=== PATIENT | female | born 1980 | race Caucasian/White ===

== ENCOUNTER 2018-10-20 13:48 | Inpatient (IN) ==
[2018-10-20] MEDS ORDERED: Methylergonovine 0.2 MG/ML AMPUL IM ONE ×2 (14:25→14:37)
[2018-10-20] MEDS ORDERED: 0.9 % Sodium Chloride 1,000 ML IVC ONE ×3 (14:27→14:35)
--- NOTE | 2018-10-20 14:37 | Anesthesia Evaluation PreOp ---
Date of Encounter: 10/20/18 Time of Encounter: 14:35 - Past History Planned Operation: EMERGENCY D&C Other Medical History: Bleeding (INCOMPLETE , HEMMORHAGIC SHOCK, ACTIVE RESUSCITATION ONGOING) - Meds/Allergy Pre-op Review Allergies Reviewed: Yes (NKDA) Anesthesia Exam REVIEWED - HR 110, SBP 95 Weight: ~70 KG NPO (# of Hours): >0700 - HEENT Mallampati: I Teeth: Missing Denture Type: Upper: Complete - Cardiac Rhythm: Regular - Pulmonary Breath Sounds: bilateral Clear Anesthesia Assess/Plan ASA Score: 4, E Anesthetic Plan: General (EMERGENTLY TO SURGERY FROM ED) Monitoring Plan: Standard Monitors Recovery Plan: PACU
[2018-10-20] MEDS ORDERED: Ketamine *HR* 500 MG/10 ML MDV ONE (14:42)
[2018-10-20] MEDS ORDERED: Tranexamic Acid 1,000 MG/10 ML VIAL ONE (14:42)
[2018-10-20] MEDS ORDERED: *HR* Vasopressin 20 UNIT/ML VIAL ONE (14:43)
[2018-10-20] MEDS ORDERED: Lidocaine -MPF 2% 2 ML VIAL ONE (14:44)
[2018-10-20] MEDS ORDERED: *HR* Propofol 200 MG/20 ML VIAL IVP ONE (14:44)
[2018-10-20] MEDS ORDERED: *HR* Succinylcholine 200 MG/10 ML VIAL IVP ONE (14:44)
--- NOTE | 2018-10-20 14:44 | OB/GYN History & Physical ---
Date of Encounter: 10/20/18 Time of Encounter: 14:42 Assessment and Plan (1) Missed with demise before 20 completed weeks of gestation Current visit: Yes Status: Acute She will be taken to operating room for suction dilatation and curettage (2) Vaginal bleeding affecting early Current visit: Yes Status: Acute (3) Acute blood loss anemia Current visit: Yes Status: Acute Patient to receive 2 units of blood getting her third and fourth unit at this time we will reassess after surgery (4) Grand multiparity Current visit: Yes Status: Acute History of Present Illness HPI: Ms. Quintero is a 38 year old female 10 para 9 at approximately 8 weeks who presented in emergency room complaining of vaginal bleeding for the past couple days. The patient arrived to the emergency room patient started hemorrhaging and had a syncopal episode. Patient was immediately given 2 large- bore IVs and trauma blood was initiated. Patient became orthostatic at this point. Was at this point we will called to come and assess the patient patient this point was normal along in this syncopal episode blood disorder being rapidly infused and she was cognizant. Patient states that she has not seen anyone so for this care they usually sees the textiles sales representative in the community. She has never had any care at a hospital never delivered at Hospital and they have children delivered at home. Patient is was noted to be actively bleeding upon evaluation in 0.2 mg of Methergine was given IM to try and help slow down the bleeding. She was counseled she needed to the operating room for an emergent dilatation and curettage. Past Med Surg Social Fam HX - Past Medical History Source: patient Medical history: no medical history Psychiatric history: no psych history - Past Surgical History Surgical History: no surgical history - Social History Smoking Status: Never smoker Smokeless Tobacco Status: No Alcohol use: none Drug use: none Occupational status: unemployed Current living situation: Home - Independent Activity Level: Independent ambulation Recent Out of Country Travel Within the Last 8 Weeks: No Exposure or Possible Exposure to Illness During Travel: No - Additional Family History Additional family history: Family history not contributory at this time Obstetrical History - Pregnancies : 10 Para: 9 Livin Review of System OB All systems PM: reviewed and no additional remarkable complaints except as stated - Genitourinary Genitourinary: menorrhagia (Heavy passing large clots while in the emergency room started bleeding 2-3 days ago.) Exam - Constitutional Constitutional: well developed, average body habitus, severe distress, dusky - HEENT HEENT: Mucus Membranes Dry - Lungs Respiratory exam: CTAB - Cardiovascular Cardiovascular exam: tachycardia - Abdomen Abdomen: Present: gravid - Comments Comments: Patient evaluated active vaginal bleeding noted large amount of clots on the perineum on the bed and in the vagina. Results All other labs normal.
[2018-10-20] MEDS ORDERED: *HR* Midazolam HCl 2 MG/2 ML VIAL ONE (14:45)
[2018-10-20] MEDS ORDERED: *HR* FentaNYL (PF) 100 MCG/2 ML VIAL ONE (14:45)
[2018-10-20] MEDS ORDERED: Calcium Gluconate 1,000 MG/10 ML VIAL ONE (14:50)
[2018-10-20 15:02] LABS: INR 1.2; Prothrombin Time 14.1 Seconds (9.4-12.1)
[2018-10-20 15:05] LABS: Activated Partial Thrombo Time 22.8 Seconds (26.0-36.0)
--- NOTE | 2018-10-20 15:08 | Emergency Department Note ---
Disposition Clinical Impression: Spontaneous complicated by shock, Acute blood loss anemia, Vaginal bleeding affecting early Disposition: Admitted As Inpatient Condition: Fair Time of Disposition: 14:20 HPI - General Chief complaint: ED Vaginal Bleeding Stated complaint: Vag Bleed Time Seen by Provider: 10/20/18 13:51 Source: patient Mode of arrival: ambulatory Limitations: no limitations Nursing Notes Reviewed: Yes Vital Signs Reviewed: Yes - History of Present Illness HPI Narrative: Concern about status. 38-year-old female brought to the emergency department by EMS for evaluation of vaginal bleeding. Patient states she is G 10 P9 at 2-1/2 months with due date of May 12 by last menstrual period. Patient has not received care prior to today. No history of ectopic in the past. She denies use of fertility medications. No history of miscarriage in the past. Patient reports she is starting to have vaginal bleeding yesterday, today she developed vaginal hemorrhage which was unable to be contained with pads. She denies significant abdominal pain, back pain. She syncopized at home prior to arrival. She does not know her blood type. Denies abdominal pain, trauma, recent hemorrhage prior to yesterday. Denies recent fever, chills, change in diet. No new medications. Denies chest pain or shortness breath emergency Department however she is very pale and appears fatigued. - Related Data Allergies Allergy/AdvReac Type Severity Reaction Status Date / Time No Known Allergies Allergy Verified 10/20/18 14:56 All systems ED: reviewed and negative except as stated. Review of Systems: As Per HPI PMH - Past Medical History MANAGER FIBER history: Denies: Spontaneous , Therapeutic , Cervical Cancer, Ectopic - Social History Smoking Status: Never smoker Alcohol use: Reports: none Drug use: Reports: none Physical Exam General: Alert, fatigued Skin: Pale and dry intact Head: Normocephalic and atraumatic Neck: Supple, trachea midline and no tenderness Cardiovascular: Tachycardia, no murmur Respiratory: CTAB, no wheezing, cough, or respiratory distress Musculoskeletal: Normal strength, no tenderness, swelling or deformity GI: Soft, mild tenderness to palpation of the suprapubic region. Nondistended. : Exam performed with female present in room. Patient having brisk vaginal hemorrhage with bright red blood with multiple clots within the vaginal vault. Unable to visualize the cervix secondary to brisk bleeding despite aggressive suctioning. No products of conception noted on exam. Neuro: A&O to person, place, time and situation. No focal deficits noted on exam Psychiatric: cooperative and appropriate mood and affect. Course Vital Signs Temperature 97.6 F 10/20/18 13:50 Pulse Rate 101 10/20/18 13:50 Respiratory Rate 18 10/20/18 13:50 Blood Pressure 132/118 10/20/18 13:50 O2 Sat by Pulse Oximetry 99 10/20/18 13:50 Temperature 97.6 F 10/20/18 13:50 Pulse Rate 100 10/20/18 14:44 Respiratory Rate 18 10/20/18 14:44 Blood Pressure 101/56 10/20/18 14:44 O2 Sat by Pulse Oximetry 98 10/20/18 14:44 Oxygen Delivery Oxygen Delivery Room Air,Nasal Cannula OB/Uterine Contractions - MDM Narrative Medical decision making narrative: 1400 : Trauma blood was ordered upon the initial evaluation. MANAGER FIBER was contacted during the initial evaluation. I spoke with the MANAGER FIBER nurse practitioner, Apple Castro, who informed the meat and poultry inspector who stated they would be in the emergency department as soon as possible. After pelvic exam was performed fundal massage and pressure was applied. Patient was placed in Trendelenburg position after she had a syncopal episode in the room. Her BP dropped into the mid 40s systolic, she was immediately given 2 L of fluid through pressure bag as well as 2 units of O- blood. Patient BP and heart rate improved with fluids. She was able to wake up and answer questions to voice. No history of anticoagulopathy in family history per . 1420 MANAGER FIBER evaluated the patient in the emergency department and will take to the OR for emergency D&C. Dr. Maloney requested 0.2 mg of Methergine BP stabilized prior to departure from the emergency department. I was informed that the blood bank ran out of O- blood. We spoke with Dr. Maloney regarding this issue who recommended O+ blood if needed until we are able to obtain a type and screen or Rh status. Patient does not have ABO Rh type in our medicals electronic records. Dr. Maloney recommended that he would give Rhogam if needed upon return of the type and screen. Patient was taken immediately down to the OR for emergent D&C. - Medical Records Medical records reviewed: Yes I reviewed the patient's medical records. - Lab Data Lab Results 10/20/18 10/20/18 Range/Units 14:15 14:36 PT 14.1 H (9.4-12.1) Seconds INR 1.2 APTT 22.8 L (26.0-36.0) Seconds Fibrinogen 216 (169-393) mg/dL D-Dimer 1129 H (0-500) ng/mLFEU Blood Type A POSITIVE Crossmatch See Detail Critical Care Time Critical Care Time: Yes Total Critical Care Time: 36 Attestation: The high probability of a clinically significant, sudden or life threatening deterioration of the cardiovascular system(s) required my full and direct attention, intervention and personal management. The aggregate critical care time was 36 minutes. This time is in addition to time spent performing reported procedures but includes the following: x Data Review and interpretation x Patient assessment and monitoring of vital signs x Documentation x Medication orders and management Attestation Statement - Attestation Attestation: I, Leo Romero, examined this patient and my medical decision-making was reviewed with the POLY AREA SUPERVISOR/PA/Advanced Practice Nurse/Resident Physician. I agree with the documented findings, disposition and treatment plan as described except to the extent set forth below. The resident and I both saw this patient however I wrote this note.
[2018-10-20 15:26] LABS: Basophils % 0.2 %; Hematocrit 31.3 % (35.3-44.9); Hemoglobin 10.1 g/dL (11.5-15.4); Immature Granulocytes % 0.6 % (0-4); Lymphocytes # 1.2 K/mcL (0.6-4.6); Lymphocytes % 12.4 %; Mean Corpuscular HGB Conc 32.3 g/dL (31.6-35.5); Mean Corpuscular Hemoglobin 29.3 pg (28.0-33.3); Mean Corpuscular Volume 90.7 fL (83.0-100.0); Mean Platelet Volume 9.8 fL (9.4-12.4); Monocytes # 0.3 K/mcL (0.0-1.3); Monocytes % 2.7 %; Neutrophils # 8.3 K/mcL (1.6-8.9); Platelet Count 102 K/mcL (140-400); Red Blood Count 3.45 M/mcL (3.82-4.97); Red Cell Distribution Width 14.5 % (11.5-14.5); Segmented Neutrophils % 84.1 %; White Blood Count 9.9 K/mcL (4.3-11.1)
--- NOTE | 2018-10-20 15:31 | Operative Note ---
Date of procedure: 10/20/18 Pre-op diagnosis: missed Post-op diagnosis: other (incomplete ) Procedure: Suction dilatation and curettage Anesthesia: ROZINA Surgeon: Joss Maloney Was there an licensed physical therapist assistant present: No Estimated blood loss (cc): 100 Specimen: Retained products of conception Condition: critical Disposition: ICU Procedure in Detail: Patient is a 38-year-old 10 para 9 at approximately 8 weeks per patient who presented to the emergency room with complaint of vaginal bleeding for the past couple days while in the emergency room patient started to hemorrhage profusely and had a syncopal episode. Patient became orthostatic immediately stabilized her with IV fluids and trauma blood. Patient with active bleeding large amount of blood on the perineum and bed at the time of the evaluation. Patient was assessed patient was symptomatic with active vaginal bleeding noted she was given 0.2 mg of Methergine IM and immediately taken to the operating room. Procedure: Patient was taken the operating room where general anesthesia was found be adequate. She was not dorsal lithotomy position prepped and draped in usual fashion. Timeout was obtained. Weighted speculum was placed in the vagina and the cervix was grasped with an Allis clamp cervix was already dilated with a large clot at the cervical os we initially attempted to do the D&C with a #8 curved suction curette but we are running into tissue that was too thick to be withdrawn from the cavity we converted over to a #10 and was able to remove a large piece of placental tissue. We then proceeded to remove clots and placental and products through the curet and hemostasis was better controlled at this time. We converted over to the 8 curved curet again and proceeded to curettage the cavity at this point we are getting nothing but a little bit of blood and we had good uterine cry. A #3 sharp curet was inserted D&C was performed there was no remaining tissue noted. 0.2 mg Methergine was given intraoperatively 1 she was observed no active bleeding was noted and the pr ocedure was terminated all instruments were removed from the vagina she received her third and fourth units of blood intraoperatively additional units have been ordered at this time. Anesthesia also ordered platelets and FFP. Initial lab work was unable to be run from the emergency room.
--- NOTE | 2018-10-20 16:05 | Anesthesia Evaluation Post Op ---
Date of Encounter: 10/20/18 - Discharge PostOp Status: Transfer Patient to floor (Patient's vital signs have been reviewed. Patient is stable postoperatively and has adequately recovered from anesthesia. Patient is determined to have stable airway patency and respiratory function including respiratory rate and oxygen saturation. Patient has a stable heart rate, blood pressure and adequate hydration. Patients mental status is acceptable. Patients temperature is appropriate. Pain and nausea are adequately controlled)
--- NOTE | 2018-10-20 16:15 | Pulmonology Consult Note ---
Date of Encounter: 10/20/18 Time of Encounter: 16:15 Past Med Surg Social Fam HX - Past Medical History Medical history: no medical history Psychiatric history: no psych history - Past Surgical History Surgical History: no surgical history - Social History Smoking Status: Never smoker Smokeless Tobacco Status: No Alcohol use: none Drug use: none Medications and Allergies Allergy/AdvReac Type Severity Reaction Status Date / Time No Known Allergies Allergy Verified 10/20/18 14:56 All Systems: The remainder of the systems were reviewed and are negative Physical Examination Vital Signs: Vital Signs, Last 4 Hours Temp Pulse Resp BP Pulse Ox 10/20/18 16:05 98 F 82 14 113/82 100 10/20/18 15:55 84 18 105/73 100 10/20/18 15:45 77 16 96/61 100 10/20/18 15:35 97 F L 78 16 90/59 99 10/20/18 14:44 100 18 101/56 98 10/20/18 14:27 105 18 90/70 96 10/20/18 14:25 96 18 93/58 100 10/20/18 13:50 97.6 F 101 18 132/118 99 Results - Laboratory Findings CBC and BMP: 10/20/18 15:17 PT/INR, D-dimer PT 14.1 Seconds (9.4-12.1) H 10/20/18 14:15 D-Dimer 1129 ng/mLFEU (0-500) H 10/20/18 14:15 Abnormal lab findings: Abnormal lab results RBC 3.45 M/mcL (3.82-4.97) L 10/20/18 15:17 Hgb 10.1 g/dL (11.5-15.4) L 10/20/18 15:17 Hct 31.3 % (35.3-44.9) L 10/20/18 15:17 Plt Count 102 K/mcL (140-400) L 10/20/18 15:17 PT 14.1 Seconds (9.4-12.1) H 10/20/18 14:15 APTT 22.8 Seconds (26.0-36.0) L 10/20/18 14:15 D-Dimer 1129 ng/mLFEU (0-500) H 10/20/18 14:15 Crossmatch See Detail 10/20/18 14:36 - Clinical Findings Intake & Output: Intake & Output 10/20/18 10/20/18 10/20/18 07:59 15:59 23:59 Intake Total 4100 / 4100 Balance 4100 / 4100 Weight 62.188 kg Consult Discharge Plan - Plan Referrals: NONE,PCP [Primary Care Provider] -
[2018-10-20] MEDS ORDERED: Ibuprofen 800 MG TABLET PO PRN ×2 (16:24→20:18)
[2018-10-20] MEDS ORDERED: Acetaminophen 325 MG TABLET PO PRN ×2 (16:24→20:18)
[2018-10-20] MEDS ORDERED: Ringers Solution, Lactated 1,000 ML IVC SCH ×2 (16:24→20:18)
[2018-10-20] MEDS ORDERED: Naloxone 0.4 MG/ML INJ IVP PRN (16:30)
[2018-10-20] MEDS ORDERED: Ondansetron 4 MG/2 ML VIAL IVP PRN ×2 (16:39→20:18)
--- NOTE | 2018-10-20 16:49 | Internal Medicine Consult Note ---
Date of Encounter: 10/20/18 Time of Encounter: 16:40 - Assessment and Plan (1) Spontaneous complicated by shock Current Visit: Yes Status: Acute Assessment and plan: Pt presented to ED with spontaneous resulting in hemorrhagic shock. She was taken urgently to OR for D&C. She has received 4 units of PRBCs and is now receiving a unit of FFP and platelets Will recheck H/H and chemistries. Serial H/H ordered. Transfusion if less than 8 or other signs of continued blood loss. Pt has multiple large bore IV access. (2) Hemorrhagic shock Current Visit: Yes Status: Acute Assessment and plan: Management as per above - monitoring H/H, IV fluids. FFP and platelets given now for prior massive transfusion. (3) Acute blood loss anemia Current Visit: Yes Status: Acute Assessment and plan: Pt with hemoglobin 10.1 on presentation. Has received 4 units PRBCs. Serial H/H ordered. (4) Vagal bradycardia Current Visit: Yes Status: Acute Assessment and plan: Pt experienced vagal episode with bradycardia while attempting to vomit. Has returned to normal sinus rhythm and remained hemodynamically stable throughout. No meds given. Zofran ordered for nausea. - Time Spent With Patient Total time spent is greater than 50% in coordination of care (as documented) at patient's floor/unit and/or counseling patient: Internal Medicine - CN: HPI - Data of Consult Patient: new to practice Consult date: 10/20/18 Requesting Physician: [place] Maloney - Consult Narrative Reason for consult: Hemorrhagic shock History of present illness: Ms. Quintero is a 38 year old female presented to ED with vaginal bleeding at 8 weeks . In ED she began to hemorrhage and had syncopal episode and trauma blood was given. She was taken urgently to the OR for D&C and transferred to ICU post operatively for further management. She has received 4 units PRBCs prior to arrival to ICU. At the time of my evaluation she is somnolent post op. She has evidence of bleeding on vaginal pad. She has multiple large bore IVs and is receiving IV fluids. We have started transfusion of a unit of FFP. Shortly after arrival to the ICU she became nauseous and began to retch. She had vagal episode with heart rate dropping to 20s. It quickly recovered to the 90s with BP 123/70. At this time she appears to be resting. Past Med Surg Social Fam HX - Past Medical History Medical history: no medical history Psychiatric history: no psych history - Past Surgical History Surgical History: no surgical history - Social History Smoking Status: Never smoker Smokeless Tobacco Status: No Alcohol use: none Drug use: none - Additional Family History Additional family history: Unobtainable ROS unobtainable: due to mental status Internal Medicine - CN: Meds Allergy/AdvReac Type Severity Reaction Status Date / Time No Known Allergies Allergy Verified 10/20/18 14:56 Hospitalist - CN: Exam - Constitutional Vitals: Temp Pulse Resp BP Pulse Ox 98 F 82 14 113/82 100 10/20/18 16:05 10/20/18 16:05 10/20/18 16:05 10/20/18 16:05 10/20/18 16:05 General appearance IM: Present: A&O X 0 (Somnolent post op) Exam: See below - Head Head exam: Present: atraumatic, normocephalic - Eye Eye exam: Present: conjuntiva pink. Absent: conjunctival injection, scleral icterus - ENT ENT exam: Present: mucous membranes dry - Expanded ENT Exam Mouth exam: Present: dry mucosa - Neck Neck exam general surgery: Present: normal inspection. Absent: lymphadenopathy, thyromegaly - Respiratory Respiratory exam: Present: CTAB. Absent: rales, rhonchi, wheezes - Cardiovascular Cardiovascular exam IM: Present: RRR. Absent: systolic murmur, tachycardia - GI/Abdominal GI/Abdominal exam IM: Present: diminished bowel sounds, soft - Rectal Rectal exam: Present: deferred - Expanded Exam Female exam: Present: deferred - Extremities Exam Extremities exam IM: Present: normal inspection. Absent: mottling, pedal edema Additional comments: Cool to touch. Pulses palpable - Neurological Exam Neurological exam: Absent: alert Additional comments: Moving all extremities. Unable to assess further due to sedation. - Skin Skin exam IM: Present: dry. Absent: rash Internal Medicine - CN: Reslt - Labs CBC & Chem 7: 10/20/18 15:17 Labs: Short CBC 10/20/18 Range/Units 15:17 WBC 9.9 (4.3-11.1) K/mcL Hgb 10.1 L (11.5-15.4) g/dL Hct 31.3 L (35.3-44.9) % Plt Count 102 L (140-400) K/mcL Neutrophils # 8.3 (1.6-8.9) K/mcL - ABG Interpretation ABG results: PT/INR, D-dimer PT 14.1 Seconds (9.4-12.1) H 10/20/18 14:15 D-Dimer 1129 ng/mLFEU (0-500) H 10/20/18 14:15 Consult Discharge Plan - Plan Referrals: NONE,PCP [Primary Care Provider] -
[2018-10-20] MEDS ORDERED: 0.9 % Sodium Chloride 500 ML ONE (16:51)
--- NOTE | 2018-10-20 17:19 | Anesthesia Evaluation Post Op ---
Date of Encounter: 10/20/18 Time of Encounter: 16:05 - Discharge PostOp Status: Transfer Patient to floor (Patient's vital signs have been reviewed. Patient is stable postoperatively and has adequately recovered from anesthesia. Patient is determined to have stable airway patency and respiratory function including respiratory rate and oxygen saturation. Patient has a stable heart rate, blood pressure and adequate hydration. Patients mental status is acceptable. Patients temperature is appropriate. Pain and nausea are adequately controlled)
[2018-10-20 18:57] LABS: Basophils % 0.1 %; Hematocrit 33.6 % (35.3-44.9); Hemoglobin 10.9 g/dL (11.5-15.4); Immature Granulocytes % 0.3 % (0-4); Lymphocytes # 0.6 K/mcL (0.6-4.6); Lymphocytes % 5.4 %; Mean Corpuscular HGB Conc 32.4 g/dL (31.6-35.5); Mean Corpuscular Hemoglobin 29.8 pg (28.0-33.3); Mean Corpuscular Volume 91.8 fL (83.0-100.0); Mean Platelet Volume 9.8 fL (9.4-12.4); Monocytes # 0.3 K/mcL (0.0-1.3); Monocytes % 2.7 %; Neutrophils # 10.9 K/mcL (1.6-8.9); Platelet Count 136 K/mcL (140-400); Red Blood Count 3.66 M/mcL (3.82-4.97); Red Cell Distribution Width 15.1 % (11.5-14.5); Segmented Neutrophils % 91.5 %; White Blood Count 11.9 K/mcL (4.3-11.1)
[2018-10-20 19:16] LABS: Alanine Aminotransferase 13 Units/L (7-52); Albumin 3.6 g/dL (3.5-5.7); Albumin/Globulin Ratio 1.8 (1.1-2.2); Alkaline Phosphatase 34 Units/L (34-104); Aspartate Amino Transferase 16 Units/L (13-39); BUN/Creatinine Ratio 18 (6-26); Bilirubin,Total 1.2 mg/dL (0.3-1.0); Blood Urea Nitrogen 9 mg/dL (6-20); Carbon Dioxide 19 mEq/L (23-29); Chloride 111 mEq/L (98-107); Glucose 115 mg/dL (70-105); Magnesium 1.6 mg/dL (1.6-2.6); Osmolality,Calculated 286 (280-300); Potassium 3.6 mEq/L (3.5-5.1); Sodium 138 mEq/L (136-145); Total Protein 5.6 g/dL (6.4-8.9); eGFR For African Americans > 60 (> 60); eGFR For Non-African Americans > 60 (> 60)
--- NOTE | 2018-10-21 07:02 | Discharge Summary ---
Date of Encounter: 10/21/18 Time of Encounter: 07:02 - Discharge Diagnosis (1) Missed with demise before 20 completed weeks of gestation Priority: Secondary Status: Acute (2) Vaginal bleeding affecting early Priority: Secondary Status: Acute (3) Acute blood loss anemia Priority: Primary Status: Acute (4) Grand multiparity Priority: Secondary Status: Acute (5) Status post dilatation and curettage Priority: Primary Status: Acute - Discharge Medications Prescriptions: New Methylergonovine [Methergine] 0.2 mg PO Q8H #6 tablet Home Medications: Methylergonovine [Methergine] 0.2 mg PO Q8H #6 tablet 10/21/18 [Rx] Allergies/Adverse Reactions: Allergy/AdvReac Type Severity Reaction Status Date / Time No Known Allergies Allergy Verified 10/20/18 14:56 Data Procedures and tests throughout hospitalization: Laboratory Tests 10/20/18 10/20/18 10/20/18 14:15 14:36 15:17 WBC 9.9 RBC 3.45 L Hgb 10.1 L Hct 31.3 L MCV 90.7 MCH 29.3 MCHC 32.3 RDW 14.5 Plt Count 102 L MPV 9.8 Immature Gran % 0.6 Seg Neutrophils % 84.1 Lymphocytes % 12.4 Monocytes % 2.7 Eosinophils % 0.0 Basophils % 0.2 Neutrophils # 8.3 Lymphocytes # 1.2 Monocytes # 0.3 Eosinophils # 0.0 Basophils # 0.0 PT 14.1 H INR 1.2 APTT 22.8 L Fibrinogen 216 D-Dimer 1129 H Sodium Potassium Chloride Carbon Dioxide BUN Creatinine Est GFR ( Amer) Est GFR (Non-Af Amer) BUN/Creatinine Ratio Glucose POC Glucose Calculated Osmolality Lactic Acid Calcium Magnesium Total Bilirubin AST ALT Alkaline Phosphatase Serum Total Protein Albumin Globulin Albumin/Globulin Ratio Blood Type A POSITIVE Antibody Screen NEGATIVE Crossmatch See Detail 10/20/18 10/20/18 10/20/18 16:23 18:45 18:45 WBC 11.9 H RBC 3.66 L Hgb 10.9 L Hct 33.6 L MCV 91.8 MCH 29.8 MCHC 32.4 RDW 15.1 H Plt Count 136 L MPV 9.8 Immature Gran % 0.3 Seg Neutrophils % 91.5 Lymphocytes % 5.4 Monocytes % 2.7 Eosinophils % 0.0 Basophils % 0.1 Neutrophils # 10.9 H Lymphocytes # 0.6 Monocytes # 0.3 Eosinophils # 0.0 Basophils # 0.0 PT INR APTT Fibrinogen D-Dimer Sodium 138 Potassium 3.6 Chloride 111 H Carbon Dioxide 19 L BUN 9 Creatinine 0.51 L Est GFR ( Amer) > 60 Est GFR (Non-Af Amer) > 60 BUN/Creatinine Ratio 18 Glucose 115 H POC Glucose 112 H Calculated Osmolality 286 Lactic Acid Calcium 8.0 L Magnesium 1.6 Total Bilirubin 1.2 H AST 16 ALT 13 Alkaline Phosphatase 34 Serum Total Protein 5.6 L Albumin 3.6 Globulin 2.0 L Albumin/Globulin Ratio 1.8 Blood Type Antibody Screen Crossmatch 10/20/18 18:45 WBC RBC Hgb Hct MCV MCH MCHC RDW Plt Count MPV Immature Gran % Seg Neutrophils % Lymphocytes % Monocytes % Eosinophils % Basophils % Neutrophils # Lymphocytes # Monocytes # Eosinophils # Basophils # PT INR APTT Fibrinogen D-Dimer Sodium Potassium Chloride Carbon Dioxide BUN Creatinine Est GFR ( Amer) Est GFR (Non-Af Amer) BUN/Creatinine Ratio Glucose POC Glucose Calculated Osmolality Lactic Acid 1.6 Calcium Magnesium Total Bilirubin AST ALT Alkaline Phosphatase Serum Total Protein Albumin Globulin Albumin/Globulin Ratio Blood Type Antibody Screen Crossmatch Labs on day of discharge: Labs from last 24 hours 10/20/18 10/20/18 10/20/18 18:45 18:45 18:45 WBC 11.9 H RBC 3.66 L Hgb 10.9 L Hct 33.6 L MCV 91.8 MCH 29.8 MCHC 32.4 RDW 15.1 H Plt Count 136 L MPV 9.8 Immature Gran % 0.3 Seg Neutrophils % 91.5 Lymphocytes % 5.4 Monocytes % 2.7 Eosinophils % 0.0 Basophils % 0.1 Neutrophils # 10.9 H Lymphocytes # 0.6 Monocytes # 0.3 Eosinophils # 0.0 Basophils # 0.0 PT INR APTT Fibrinogen D-Dimer Sodium 138 Potassium 3.6 Chloride 111 H Carbon Dioxide 19 L BUN 9 Creatinine 0.51 L Est GFR ( Amer) > 60 Est GFR (Non-Af Amer) > 60 BUN/Creatinine Ratio 18 Glucose 115 H POC Glucose Calculated Osmolality 286 Lactic Acid 1.6 Calcium 8.0 L Magnesium 1.6 Total Bilirubin 1.2 H AST 16 ALT 13 Alkaline Phosphatase 34 Serum Total Protein 5.6 L Albumin 3.6 Globulin 2.0 L Albumin/Globulin Ratio 1.8 Blood Type Antibody Screen Crossmatch 10/20/18 10/20/18 10/20/18 16:23 15:17 14:36 WBC 9.9 RBC 3.45 L Hgb 10.1 L Hct 31.3 L MCV 90.7 MCH 29.3 MCHC 32.3 RDW 14.5 Plt Count 102 L MPV 9.8 Immature Gran % 0.6 Seg Neutrophils % 84.1 Lymphocytes % 12.4 Monocytes % 2.7 Eosinophils % 0.0 Basophils % 0.2 Neutrophils # 8.3 Lymphocytes # 1.2 Monocytes # 0.3 Eosinophils # 0.0 Basophils # 0.0 PT INR APTT Fibrinogen D-Dimer Sodium Potassium Chloride Carbon Dioxide BUN Creatinine Est GFR ( Amer) Est GFR (Non-Af Amer) BUN/Creatinine Ratio Glucose POC Glucose 112 H Calculated Osmolality Lactic Acid Calcium Magnesium Total Bilirubin AST ALT Alkaline Phosphatase Serum Total Protein Albumin Globulin Albumin/Globulin Ratio Blood Type A POSITIVE Antibody Screen NEGATIVE Crossmatch See Detail 10/20/18 14:15 WBC RBC Hgb Hct MCV MCH MCHC RDW Plt Count MPV Immature Gran % Seg Neutrophils % Lymphocytes % Monocytes % Eosinophils % Basophils % Neutrophils # Lymphocytes # Monocytes # Eosinophils # Basophils # PT 14.1 H INR 1.2 APTT 22.8 L Fibrinogen 216 D-Dimer 1129 H Sodium Potassium Chloride Carbon Dioxide BUN Creatinine Est GFR ( Amer) Est GFR (Non-Af Amer) BUN/Creatinine Ratio Glucose POC Glucose Calculated Osmolality Lactic Acid Calcium Magnesium Total Bilirubin AST ALT Alkaline Phosphatase Serum Total Protein Albumin Globulin Albumin/Globulin Ratio Blood Type Antibody Screen Crossmatch Date of admission: 10/20/18 15:14 Primary care physician: PCP NONE Consults: 10/20/18 14:26 Consult to [employer] [CONS] Stat Consulting Provider: [employer] [place] Reason for Consult: vaginal hemorrhage Time Notified: 14:15 Call Completed: Yes 10/20/18 16:24 Consult to Hospitalist [CONS] Routine Consulting Provider: Hospitalist [facility] Reason for Consult: hx miscarrage with significant blood loss anemia, admit to ICU Time Notified: 16:00 Call Completed: Yes Discharging clinician: Joss Maloney Anticipated date of discharge: 10/21/18 - Patient Status Disposition: Home, Self-Care Condition: Good Functional capacity at discharge: independent ambulation Overall status at discharge: patient is progressing back to baseline - Discharge Instructions Follow Up With: NONE,PCP [Primary Care Provider] - Joss Maloney DO [Partnered Physician] - Mita Banuelos CNM [Non-Partnered Physician] - - Diet and Activity Activity: increase activity as tolerated Diet: advance to your usual diet Hospital Course [employer]ICAL [employer] DIRECT[employer] Reason for admission: other (Missed , active vaginal bleeding, blood loss anemia) Post op complications: None Discharge diagnosis: other (Same with incomplete and status post blood transfusion 4) Procedures: Suction dilatation and curettage Hospital course: 38-year-old 10 para 9 who presented to the emergency room complaining of heavy vaginal bleeding. Patient had started bleeding the day before but not that heavy but around noon Started passing large clots and became symptomatic. Patient on arrival to the emergency room was symptomatic had a syncopal episode and was orthostatic. Immediately contacted as and at that time had started 2 large bore IVs , and trauma blood was started. Patient was immediately taken to the operating room where she received 2 more units of blood and we performed a suction dilatation and curettage. Patient thought she was approximately 8 weeks based on size uterus and the amount of product that we removed I would suspect she was closer to 12-14 weeks. There was no fetus she might a past that at home when the emergency room, emergency room did examine the clots did not find anything. Patient was initially sent to ICU for stabilization she did receive FFP and platelets follow-up the and once stable we decided to transfer back down to our unit. Patient was observed blood work was repeated all stable and she was having minimal bleeding patient was tolerating diet and ambulating without any difficulty and was ready to go home. She will be discharged home with Methergine 0.2 mg every 8 hours as needed for bleeding she will take [id number] iron and [id number] ibuprofen. We will make arrangements for her to follow up with someone in approximately 2 weeks. Patient's condition at the time of discharge was stable. Time Attestation: Total time spent providing and/or coordinating discharge services: Exam - Constitutional Vitals: Temp Pulse Resp BP Pulse Ox 99.3 F 82 16 107/66 98 10/21/18 04:45 10/21/18 04:45 10/21/18 04:45 10/21/18 04:45 10/21/18 04:45 General appearance IM: A&O X 3, no acute distress - Respiratory Respiratory exam: Present: CTAB - Cardiovascular Cardiovascular exam IM: Present: RRR - GI/Abdominal GI/Abdominal exam IM: normal bowel sounds - External exam: normal external exam Uterine Tone: Firm - Extremities Exam Extremities exam IM: Present: full ROM
[2018-10-21 07:15] LABS: Basophils % 0.3 %; Eosinophils % 0.5 %; Hematocrit 26.1 % (35.3-44.9); Immature Granulocytes % 0.1 % (0-4); Lymphocytes # 1.7 K/mcL (0.6-4.6); Lymphocytes % 22.4 %; Mean Corpuscular HGB Conc 33.7 g/dL (31.6-35.5); Mean Corpuscular Hemoglobin 28.9 pg (28.0-33.3); Mean Corpuscular Volume 85.9 fL (83.0-100.0); Mean Platelet Volume 9.4 fL (9.4-12.4); Monocytes # 0.3 K/mcL (0.0-1.3); Monocytes % 4.4 %; Neutrophils # 5.4 K/mcL (1.6-8.9); Platelet Count 122 K/mcL (140-400); Red Blood Count 3.04 M/mcL (3.82-4.97); Red Cell Distribution Width 15.5 % (11.5-14.5); Segmented Neutrophils % 72.3 %; White Blood Count 7.4 K/mcL (4.3-11.1)
[2018-10-21 07:19] LABS: Hemoglobin 8.8 g/dL (11.5-15.4)
[2018-10-21 08:47] VITALS: BP 108/67
[2018-10-21] MEDS ORDERED: Methylergonovine 0.2 MG/ML AMPUL IM ONE (09:39)
== END 2018-10-21 09:40 | disposition home or self-care (01) | DRG 770 ==
LOC: 1NENUOBS 13:48 → EMEROOARM 13:48 → ICNU 14:44 → OBSVTOIN 15:14 → SUATTDRO 15:14 → ICNU 15:34 → 1NENUOBS 20:18
PROVIDERS: ADMIT Obstetrics & Gynecology; ATTEND Obstetrics & Gynecology